=== PATIENT | female | born 1990 | race African-American/Black ===

== ENCOUNTER 2017-06-13 19:26 | Emergency (ER) | payer OTHER ==
[~2017-06-13] VITALS: Ht 157.5 cm; Wt 124.7 kg
[~2017-06-13 19:26] MED LIST: ACCUNEB SO1.25 MG/1 INH; ADVAIR HFA 230M12 GM INH; ALBUTEROL2.5 MG/31 INH; CELEXA10 MG PO; FLAGYL500 MG PO; IBUPROFEN 800800 MG PO; MACROBID 100 M100 M1 PO; NOHOMEMEDICATIONS; PREDNISONE 20 M20 MG PO; VENTOLIN HFA 1818 GM INH
[2017-06-13] MEDS ORDERED: PROAIR HFA8.5 GM INH (20:18)
[2017-06-13] MEDS ORDERED: PROMETHAZINE V473 ML PO (20:18)
[2017-06-13] MEDS ORDERED: ZPAK PO (20:18)
[2017-06-13] MEDS ORDERED: MEDROLDOSEPACK PO (20:18)
[2017-06-13] MEDS ORDERED: OSELB75 PO (20:18)
[2017-06-13] MEDS ORDERED: TESSALON PERLE100 MG PO (20:18)
[2017-06-13 21:03] LABS: INFLUENZA A ANTIGEN None Detected (None Detect); INFLUENZA B ANTIGEN None Detected (None Detect)
[2017-06-13 21:06] VITALS: BP 144/80
== END 2017-06-13 21:06 | disposition home or self-care (01) ==
LOC: M.ERS 19:26
PROVIDERS: Nurse Practitioner Family
DX: J11.1 Influenza due to unidentified influenza virus with other respiratory manifestations (principal); J20.9 Acute bronchitis, unspecified; J45.909 Unspecified asthma, uncomplicated; F32.9 Major depressive disorder, single episode, unspecified

== ENCOUNTER 2019-03-01 10:02 | Emergency (ER) | payer OTHER ==
[~2019-03-01] VITALS: Ht 157.5 cm; Wt 113.4 kg
[~2019-03-01 10:02] MED LIST changes: +BREO ELLIPTA 11 EACH INH; +CELEXA20 MG PO; +MEDROLDOSEPACK PO; +OSELB75 PO; +PROAIR HFA8.5 GM INH; +PROMETHAZINE V473 ML PO; +TESSALON PERLE100 MG PO; +ZPAK PO
[2019-03-01 10:30] LABS: URINE BILIRUBIN NEGATIVE (Negative); URINE BLOOD 3+ (Negative); URINE CLARITY CLEAR; URINE COLOR YELLOW; URINE GLUCOSE-RANDOM NEGATIVE (Negative); URINE KETONES NEGATIVE (Negative); URINE LEUKOCYTES-REFLEX NEGATIVE (Negative); URINE NITRITE-REFLEX NEGATIVE (Negative); URINE PROTEIN NEGATIVE (Negative); URINE UROBILINOGEN 0.2 E.U./dl (0.2-1.0)
[2019-03-01 10:38] LABS: BACTERIA-REFLEX 1-9 Few /HPF (None Seen); CASTS None Seen /LPF (None Seen); CRYSTALS None Seen /LPF (None Seen); MUCUS 0-3 Light strn/LPF (None Seen); SQUAMOUS 0-3 Few /LPF (0-3); URINE RBC 3-10 Few /HPF (0-2); URINE WBC-REFLEX 0-5 Rare /HPF (0-5)
[2019-03-01 11:15] LABS: ABSOLUTE BASOPHILS 0.1 thou/uL (0.0-0.2); ABSOLUTE EOSINOPHILS 0.3 thou/uL (0.0-0.7); ABSOLUTE LYMPHOCYTES 1.4 thou/uL (0.8-5.3); ABSOLUTE MONOCYTES 0.5 thou/uL (0.0-1.2); ABSOLUTE NEUTROPHILS 6.4 thou/uL (1.6-8.1); BASOPHILS 0.6 %; EOSINOPHILS 3.5 %; HEMATOCRIT 35.8 % (37.0-47.0); HEMOGLOBIN 11.7 gm/dL (12.0-15.0); LYMPHOCYTES 16.2 %; MCH 25.8 pg (26.0-34.0); MCHC 32.7 g/dL (28.0-37.0); MONOCYTES 5.3 %; MPV 7.6 fl. (7.2-11.1); NUCLEATED RBCS 0 /100WBC; PLATELET COUNT* 399 thou/uL (150-400); POLYS 74.4 %; RBC 4.54 mil/uL (4.20-5.00); WBC 8.5 thou/uL (4.0-11.0)
[2019-03-01 11:34] LABS: CALCIUM 9.1 mg/dL (8.5-10.1); POTASSIUM 3.6 mmol/L (3.5-5.1)
[2019-03-01 11:39] LABS: ALBUMIN 3.3 g/dL (3.4-5.0); TOTAL BILIRUBIN 0.4 mg/dL (<0.1-1.0); TOTAL PROTEIN 7.5 g/dL (6.4-8.2)
[2019-03-01] MEDS ORDERED: IMODIUM A-D2 MG PO (13:03)
[2019-03-01] MEDS ORDERED: BENTYL 20 MG TA20 M1 PO (13:03)
[2019-03-01] MEDS ORDERED: PROMETHAZINE HC25 M1 PO (13:03)
[2019-03-01 13:29] VITALS: BP 147/89
== END 2019-03-01 13:29 | disposition home or self-care (01) ==
LOC: M.ERS 10:02
PROVIDERS: Nurse Practitioner
DX: A08.4 Viral intestinal infection, unspecified (principal); R19.7 Diarrhea, unspecified; J45.909 Unspecified asthma, uncomplicated; F32.9 Major depressive disorder, single episode, unspecified

== ENCOUNTER 2020-11-02 20:43 | Emergency (ER) | payer OTHER ==
[~2020-11-02] VITALS: Ht 157.5 cm; Wt 135.6 kg
[~2020-11-02 20:43] MED LIST changes: +BENTYL 20 MG TA20 M1 PO; +IMODIUM A-D2 MG PO; +PROMETHAZINE HC25 M1 PO
[2020-11-02] MEDS ORDERED: PROAIR HFA8.5 GM INH (21:14)
[2020-11-02] MEDS ORDERED: SINGULAIR 10 MG10 M1 PO (21:14)
[2020-11-02] MEDS ORDERED: IBU800 MG PO (22:47)
[2020-11-02 23:07] VITALS: BP 141/70
== END 2020-11-02 23:07 | disposition home or self-care (01) ==
LOC: M.ERS 20:43
DX: S93.492A Sprain of other ligament of left ankle, initial encounter (principal); S40.812A Abrasion of left upper arm, initial encounter; J45.909 Unspecified asthma, uncomplicated; Z91.09 Other allergy status, other than to drugs and biological substances; Z79.899 Other long term (current) drug therapy; W01.0XXA Fall on same level from slipping, tripping and stumbling without subsequent striking against object, initial encounter; Y93.89 Activity, other specified; Y92.89 Other specified places as the place of occurrence of the external cause; Y99.8 Other external cause status

== ENCOUNTER 2021-01-31 21:06 | Emergency (ER) | payer OTHER ==
[~2021-01-31] VITALS: Ht 172.7 cm; Wt 136.1 kg
[~2021-01-31 21:06] MED LIST changes: +IBU800 MG PO; +SINGULAIR 10 MG10 M1 PO
[2021-01-31 22:23] LABS: URINE BILIRUBIN NEGATIVE (Negative); URINE BLOOD NEGATIVE (Negative); URINE CLARITY CLEAR; URINE COLOR YELLOW; URINE GLUCOSE-RANDOM NEGATIVE (Negative); URINE KETONES NEGATIVE (Negative); URINE LEUKOCYTES-REFLEX NEGATIVE (Negative); URINE NITRITE-REFLEX NEGATIVE (Negative); URINE PROTEIN NEGATIVE (Negative); URINE SPECIFIC GRAVITY >= 1.030 (1.005-1.030); URINE UROBILINOGEN 0.2 E.U./dl (0.2-1.0)
[2021-01-31] MEDS ORDERED: PREDNISONE50 MG PO (23:07)
[2021-01-31] MEDS ORDERED: ALBUTEROL2.5 MG/31 INH (23:07)
[2021-01-31] MEDS ORDERED: HYDROCODONE-CH115 ML PO (23:45)
[2021-01-31 23:50] VITALS: BP 141/70
--- NOTE | 2021-02-01 16:09 | EKG ---
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
== END 2021-01-31 23:54 | disposition home or self-care (01) ==
LOC: M.ERS 21:06
PROVIDERS: Emergency Medicine
DX: J45.909 Unspecified asthma, uncomplicated (principal); Z20.822 Contact with and (suspected) exposure to COVID-19; F32.9 Major depressive disorder, single episode, unspecified; F41.9 Anxiety disorder, unspecified; Z79.899 Other long term (current) drug therapy; Z91.048 Other nonmedicinal substance allergy status